=== PATIENT | female | born 1955 | race African-American/Black ===

== ENCOUNTER → 2020-02-10 | Outpatient (CLI) | payer OTHER ==
[~2020-02-10] MED LIST: AMATIZA PO; ASPIRIN325 PO; CALCIUM 600 +1 EAC1 PO; CELEXA20 MG PO; CELEXA40 MG PO; CEPACOL SORE T1 EAC7 DISSOLVE; DARVOCET-N 1001 EACH PO; ELAVIL; ELAVIL PO; FISH OIL 1,001000 M1 PO; HYCODAN SYRUP480 ML PO; HYDROCODON-ACE1 EAC7 PO; HYDROCODON-ACE1 EACH; LISINOPRIL; LISINOPRIL30 MG PO; LODINE 200MG C200 M1 PO; LODINE300 MG PO; METFORMIN HCL500 M2; NEXIUM40 MG PO; NORCO 5-325 TA1 EACH PO; OMEGA-31000 M1 PO; PREDNISONE 20 M20 M1 PO; PREVACID15 MG; PRILOSEC 20 MG20 MG PO; PROVENTIL HFA6.7 G1 INH; SAVELLA100 MG PO; TOVIAZ4 M1 PO; ULTRAM 50MG TAB50 MG PO; VITAMIN D350000 UNIT PO
--- NOTE | 2020-02-10 13:34 | EXE ---
[place] [address] STRESS ECHOCARDIOGRAM Name: LUKEANDRÉS BREANNAJUNAID L Room: [facility]#: [id number] Admission: 02/10/20 Attend Phys: Mik Hutton MD Discharge: Date of : 57 Date of Service: 02/10/20 1332 Report #: [id number] THIS REPORT FOR: cc: AMAIRANI LINDQUIST DO Physician not on staff Oliverio Kellogg MD [facility] ~ APPROVED REPORT Study performed: 02/10/2020 11:55:45 Exam: Stress Echocardiogram Indication: Chest pain Patient Location: Out-Patient Stress Nurse: Michelle Mace RN Supervising Physician: Oliverio Kellogg MD Status: routine Medical History Medical History: MV prolapse Medications: Metoprolol Allergies: keflex, PCN, Solumedrol Cardiac Risk Factors: DM, HTN, Tobacco History (Former), FHX of CAD Procedure The patient underwent an Exercise Stress Test using the Jerald Protocol. Blood pressure, heart rate, and EKG were monitored. An Echocardiogram was performed by windshield repair technician in four stages in quad fashion. At peak stress, four selected images were obtained and placed side by side with resting images for comparison. Stress Test Details Stress Test: Exercise stress testing was performed using a Jerald protocol. HR Resting HR: 87 bpm Max Heart Rate (APMHR): 157 bpm Max HR Achieved: 143 bpm Target HR (85% APMHR): 133 bpm % of APMHR: 91 Recovery HR: 90 bpm HR response to stress: Normal HR response to stress BP Resting BP: 125/56 mmHg Max BP: 196/83 [place] [address] STRESS ECHOCARDIOGRAM Name: JUNAID DE LA ROSA Room: [facility]#: [id number] Admission: 02/10/20 Attend Phys: Mik Hutton MD Discharge: Date of : 57 Date of Service: 02/10/20 1332 Report #: [id number] Recovery BP: 150./77 mmHg BP response to stress: Normal blood pressure response to stress. ECG Resting ECG: nonspecific st-t changes in inferior and anterolateral leads Stress ECG: minor and nonspecific increase in baseline abnormalities Arrhythmia: occasional isolated pvc's Clinical Reason for Termination: Dyspnea, fatigue Stress Symptoms: none Exercise duration: 4 min 2 sec Highest Stage Achieved: Stage 2: 2.5 mph at 12% grade. Exercise capacity: 5.83 METs Pre-Stress Echo The resting Echocardiogram showed normal left ventricular contractility with an estimated Ejection Fraction of about 55-60%. Normal wall motion in all segments on baseline images. Post-Stress Echo The stress Echocardiogram showed normal left ventricular contractility with an estimated Ejection Fraction of about >70%. Normal augmentation of wall motion in all segments on post stress images. Conclusion Clinical Response: Non-ischemic Exercise Capacity: Below Average Stress ECG Response: Indeterminant Stress Echo Images: Non-ischemic Other Information Study Quality: Good <ELECTRONICALLY SIGNED> By: Oliverio Kellogg MD, [facility] 02/10/20 1332 133 133 Oliverio Kellogg MD, FACC /INF
== END ==
LOC: M.CRD 11:19
DX: R07.82 Intercostal pain (principal)